=== PATIENT | male | born 1980 | race Caucasian/White ===

== ENCOUNTER 2018-06-15 19:21 | Inpatient (IN) | payer SELFPAY ==
[~2018-06-15] VITALS: Ht 190.5 cm; Wt 113.4 kg
[2018-06-15] MEDS ORDERED: IV NS 0.9% 1,000 ML BAG IV ONE (20:00)
[2018-06-15] MEDS ORDERED: ONDANSETRON HCL/PF - ER 4 MG/2 ML VIAL IV ONE (20:00)
[2018-06-15] MEDS ORDERED: MORPHINE SULFATE INJ 2 MG/ML DISP.SYRIN IV ONE (20:00)
[2018-06-15 20:02] LABS: APPEARANCE,URINE Clear (CLEAR); BILIRUBIN,URINE Negative (NEGATIVE); BLOOD, URINE Trace-lysed Ery/uL (NEGATIVE); COLOR,URINE Yellow (YELLOW); KETONES,URINE 15 (NEGATIVE); LEUKOCYTE ESTERASE ,URINE Negative (NEGATIVE); NITRITE, URINE Negative (NEGATIVE); PROTEIN,URINE 30 mg/dl (NEGATIVE); UGLUCOSE Negative (NEGATIVE); UROBILINOGEN,URINE 0.2 EU/dL (0.2)
[2018-06-15] MEDS ORDERED: ONDANSETRON HCL/PF 4 MG/2 ML VIAL ONE (20:07)
[2018-06-15] MEDS ORDERED: MORPHINE SULFATE INJ 4 MG/ML DISP.SYRIN ONE (20:08)
[2018-06-15 20:09] LABS: BASOPHILS % (AUTO) 0.2 % (0.0-2.0); EOSINOPHILS % (AUTO) 0.1 % (0.0-6.0); HEMATOCRIT 46 % (39-51); LYMPHOCYTES # (AUTO) 0.8 /CMM (0.8-4.8); LYMPHOCYTES % (AUTO) 8.7 % (20.0-44.0); MEAN CORPUSCULAR HGB CONC 35 g/dl (31.0-36.0); MEAN CORPUSCULAR VOLUME 87 fL (80-96); MONOCYTES # (AUTO) 0.7 /CMM (0.1-1.30); MONOCYTES % (AUTO) 7.2 % (2.0-12.0); NEUTROPHILS # (AUTO) 8.2 /CMM (1.8-8.9); NEUTROPHILS % (AUTO) 83.8 % (43.0-81.0); PLATELET COUNT (AUTO) 180 /CMM (150-450); RED BLOOD CELL COUNT(AUTO) 5.25 MIL/uL (4.5-6.0); WHITE BLOOD COUNT (AUTO) 9.7 K/uL (4.3-11.0)
[2018-06-15 20:17] LABS: CALCIUM, SERUM 9.4 mg/dL (8.5-10.1); CREATININE 1.3 mg/dL (0.6-1.3); POTASSIUM 3.9 mmol/L (3.5-5.1)
--- NOTE | 2018-06-15 20:21 | NUR ---
BIBSELF C/O GENERALIZED ABDOMINAL PAIN X1 DAY. CONSTANT AND SHARP.+N/V,-D,-DYSURIA,- HEMATURIA, -FEVER. LAST BM X1 DAY AGO. PT AAOX4, VSS. DENIES CP, SOB, DIZZINESS, WEAKNESS @ THIS TIME. PT SEEN & EVAL'D BY DR. OQUENDO. MEDICATED PER ORDERED, PT JOSE WELL. WILL CONT TO MONITOR.
[2018-06-15 20:23] LABS: BACTERIA,URINE Few /HPF (None Seen); MUCUS,URINE Moderate /LPF (None Seen); SQUAMOUS EPITHELIAL CELL,UR Few /HPF (None Seen); WBC,URINE 0-2 /HPF (0-3)
[2018-06-15 20:23] LABS: ALBUMIN 4.5 g/dL (3.4-5.0); BILIRUBIN,DIRECT 0.1 mg/dL (0.0-0.2); BILIRUBIN,TOTAL 0.7 mg/dL (0.2-1.0); TOTAL PROTEIN, SERUM 8.3 g/dL (6.4-8.2)
--- NOTE | 2018-06-15 21:15 | NUR ---
CALLED [facility] KATHE CONTRERAS
--- NOTE | 2018-06-15 21:19 | NUR ---
PT AAOX4, VSS. RLQ ABD PAIN 08/30 JOSE WELL. " IT'S BETTER ". DENIES CP, SOB, N/V, DIZZINESS, WEAKNESS @ THIS TIME. WILL CONT TO MONITOR.
--- NOTE | 2018-06-15 21:20 | NUR ---
PT STATES HE TAKES NO MEDICATIONS AT HOME
[2018-06-15] MEDS ORDERED: PIPERACILLIN /TAZOBACTAM 3.375 G in IV D5W 50 ML IV ONE (21:30)
[2018-06-15] MEDS ORDERED: ONDANSETRON HCL/PF 4 MG/2 ML VIAL IVP PRN (22:00)
[2018-06-15] MEDS ORDERED: ACETAMINOPHEN 325 MG TABLET PO PRN (22:00)
[2018-06-15] MEDS ORDERED: MAG HYDROX/AL HYDROX/SIMETH 30 ML UDC PO PRN (22:00)
[2018-06-15] MEDS ORDERED: HYDROCODONE/APAP 5/325MG 1 EACH TABLET PO PRN (22:00)
[2018-06-15] MEDS ORDERED: Z GUARD REMEDY 2 OZ OINT TP PRN (22:00)
[2018-06-15] MEDS ORDERED: MAGNESIUM HYDROXIDE 30 ML UDC PO PRN (22:00)
--- NOTE | 2018-06-15 22:01 | NUR ---
ADMIT TO ROOM 120-2 MED SURG DX ACUTE APPENDICITIS ACCEPTING BEN
[2018-06-15] MEDS ORDERED: PIPERACILLIN /TAZOBACTAM 3.375 G VIAL IV ONE (22:05)
--- NOTE | 2018-06-15 22:23 | NUR ---
REPORT GIVEN TO JULIAN STALLINGS FOR CONT OF CARE.
[2018-06-15 22:35] VITALS: BP 143/82
--- NOTE | 2018-06-15 22:35 | NUR ---
RN MS ADMISSION NOTES RECEIVED PATIENT FROM ER VIA GURNEY. PATIENT IS ALERT AND ORIENTED X4, VERBALLY RESPONSIVE, ABLE TO MAKE NEEDS KNOWN. BREATHING EVEN AND UNLABORED. NO SOB NOTED. TOLERATING ROOM AIR. WITH COMPLAINTS OF PAIN ON RIGHT LOWER ABDOMEN - WILL GIVE PRN PAIN MEDICATION. SKIN DRY AND WARM TO TOUCH. AFEBRILE. PATIENT IS AMBULATORY WITH STEADY GAIT. EXPLAINED THE PROCESS OF ADMISSION, INCLUDING SKIN ASSESSMENT. PER PATIENT, "ITS OK, I DONT HAVE ANY WOUNDS." PATIENT'S SKIN APPEARS TO HAVE NO ISSUES. ORIENTED TO THE USE OF UNIT AMENITIES. INFORMED OF NPO STATUS - VERBALIZED UNDERSTANDING. BELONGINGS ACCOUNTED FOR. ALL OTHER NEEDS ATTENDED TO. SAFETY MEASURES IN PLACE. CALL LIGHT WITHIN REACH. WILL CONTINUE TO MONITOR.
--- NOTE | 2018-06-15 23:30 | NUR ---
RN MS NOTES PATIENT REQUESTING FOR PAIN MEDICATION DUE TO ABDOMINAL PAIN. PATIENT HAS ORDERS FOR NORCO AND TYLENOL PO BUT PATIENT IS NPO. PAGED DR. BRITT TO CLARIFY ORDERS. PER EDITA DELGADO TO GIVE MORPHINE 2MG IV Q4H PRN. ALSO CLARIFIED REGARDING ZOSYN ORDER. PATIENT RECEIVED ZOSYN IN ER AT 2220, AND NEXT SCHEDULED DOSE IS 0000. PER EDITA DELGADO TO RESCHEDULE NEXT DOSE 6 HOURS AFTER LAST DOSE. ORDERS NOTED AND CARRIED OUT. WILL CONTINUE TO MONITOR.
[2018-06-16] MEDS: IV NS 0.9% 1,000 ML IV PRN ×2 (00:52→10:31)
[2018-06-16] MEDS: MORPHINE SULFATE INJ 2 MG/ML DISP.SYRIN IV PRN ×2 (01:02→22:54)
[2018-06-16 04:00] VITALS: BP 124/80
[2018-06-16] MEDS ORDERED: PIPERACILLIN /TAZOBACTAM 4.5 G in IV D5W 50 ML IV SCH ×5 (04:00→10:00)
[2018-06-16] MEDS ORDERED: PIPERACILLIN /TAZOBACTAM 2.25 G VIAL IV ONE (04:10)
--- NOTE | 2018-06-16 06:48 | NUR ---
RN MS CLOSING NOTES PATIENT RESTING IN BED. NO ACUTE CHANGES THROUGHOUT SHIFT. NO N/V. BREATHING EVEN AND UNLABORED. NO SOB NOTED. TOLERATING ROOM AIR. NO COMPLAINTS OF PAIN OR DISCOMFORT AT THE MOMENT. SKIN DRY AND WARM TO TOUCH. AFEBRILE. ALL OTHER NEEDS ATTENDED TO. SAFETY MEASURES IN PLACE. CALL LIGHT WITHIN REACH. WILL CONTINUE TO ENDORSE TO ONCOMING NURSE FOR COOPER.
[2018-06-16 07:24] LABS: BASOPHILS % (AUTO) 0.2 % (0.0-2.0); EOSINOPHILS % (AUTO) 0.3 % (0.0-6.0); HEMATOCRIT 41 % (39-51); HEMOGLOBIN 14.3 g/dL (13.5-17.5); LYMPHOCYTES # (AUTO) 1.3 /CMM (0.8-4.8); LYMPHOCYTES % (AUTO) 18.8 % (20.0-44.0); MEAN CORPUSCULAR HGB CONC 35 g/dl (31.0-36.0); MEAN CORPUSCULAR VOLUME 87 fL (80-96); MONOCYTES # (AUTO) 0.6 /CMM (0.1-1.30); MONOCYTES % (AUTO) 8.6 % (2.0-12.0); NEUTROPHILS # (AUTO) 5.1 /CMM (1.8-8.9); NEUTROPHILS % (AUTO) 72.1 % (43.0-81.0); PLATELET COUNT (AUTO) 129 /CMM (150-450); RED BLOOD CELL COUNT(AUTO) 4.73 MIL/uL (4.5-6.0)
[2018-06-16 07:39] LABS: ALBUMIN 3.7 g/dL (3.4-5.0); BILIRUBIN,TOTAL 1.3 mg/dL (0.2-1.0); CALCIUM, SERUM 8.7 mg/dL (8.5-10.1); CREATININE 1.3 mg/dL (0.6-1.3); MAGNESIUM 1.7 mg/dL (1.8-2.4); PHOSPHORUS 2.7 mg/dL (2.5-4.9); POTASSIUM 3.5 mmol/L (3.5-5.1)
[2018-06-16 08:00] VITALS: BP 116/68
[2018-06-16] MEDS ORDERED: PIPERACILLIN /TAZOBACTAM 3.375 G in IV D5W 100 ML IV SCH (09:00)
--- NOTE | 2018-06-16 10:08 | NUR ---
spoke with dr. lara ag he will see pt. today.
[2018-06-16] MEDS: Magnesium 1GM/D5W 100ML PREMIX 100 ML IV SCH ×2 (11:18→12:38)
[2018-06-16] MEDS ORDERED: PIPERACILLIN /TAZOBACTAM 3.375 G in IV D5W 50 ML IV SCH (12:00)
--- NOTE | 2018-06-16 18:51 | NUR ---
RN CLOSING NOTE PATIENT WILL BE ADMITTED TO SURGERY THIS EVENING PER ANDRE, STAT LABS DRAWN, PROCEDURES AND CONSENTS EXPLAINED SIGNED AND IN CHART. PATIENT HAS REFUSED PAIN MEDICATION THROUGH OUT THE DAY. IV ACCESS RIGHT AC. PATIENT REMAINS NPO PER MD ORDER, MAGNESIUM ADMINISTERED SUCCESFULLY TODAY, IV ATB INFUSED. AMBULATORY, ALERT AND ORIENTED. ENDORSE TO NIGHT NURSE, SURGERY IS SCHEDULED FOR 7PM 06/16
[2018-06-16] MEDS ORDERED: LIDOCAINE HCL/PF 1% 30 ML SDV ONE (19:02)
[2018-06-16] MEDS ORDERED: ANESTHESIA TRAY IN PYXIS 1 EA TRAY MC ONE (19:02)
[2018-06-16] MEDS ORDERED: BUPIVACAINE MPF 0.5% W/EPI INJ 30 ML VIAL ONE (19:02)
[2018-06-16] MEDS ORDERED: ROCURONIUM BROMIDE 50 MG/5 ML ONE (19:14)
[2018-06-16] MEDS ORDERED: MIDAZOLAM HCL 2 MG/2ML VIAL ONE (19:14)
[2018-06-16] MEDS ORDERED: HYDROMORPHONE INJ 2 MG/ML DISP.SYRIN ONE (19:14)
--- NOTE | 2018-06-16 20:00 | NUR ---
MS RN NOTES NOT IN THE ROOM,OUT TO SURGERY FOR LAPAROSCOPIC APPENDECTOMY POSSIBLE OPEN.
--- NOTE | 2018-06-16 20:30 | NUR ---
RN NOTES RECEIVED REPORT FROM JOHAN JORDAN,RECOVERY ROOM NURSE,S/P LAPAROSCOPIC APPENDECTOMY UNDER GENERAL ANESTHESIA
--- NOTE | 2018-06-16 20:40 | NUR ---
MS RN NOTES CAME BACK FROM SURGERY PER REBEKA,TRANSPORTED BY JOHAN JORDAN.WITH 3 ABDOMINAL INCISION GLUED.NO BLEEDING NOTED.AWAKE BUT KIND OF DROWSY FROM GENERAL ANESTHESIA.STARTED ON IVF NS AT 125ML/HR RATE VIA IV PUMP ON RIGHT AC,SITE PATENT.WILL CONTINUE TO MONITOR STATUS.ON CLEAR LIQUID DIET,GIVEN WATER PER PATIENT REQUEST.
[2018-06-16 20:45] VITALS: BP 128/75
--- NOTE | 2018-06-16 21:00 | NUR ---
MS RN NOTES STARTED ON INCENTIVE SPIROMETRY,INSTRUCTED HOW TO USE IT.
[2018-06-16] MEDS: CIPROFLOXACIN IV RTU 400 MG in PREMIX 1 EA IV SCH (21:22)
--- NOTE | 2018-06-16 21:22 | NUR ---
MS RN NOTES STARTED ON CIPRO IV ABX ORDERED.
--- NOTE | 2018-06-16 22:15 | NUR ---
MS RN NOTES ABLE TO WALK AROUND INSIDE THE ROOM.DENIES DIZZINESS.
[2018-06-16] MEDS: METRONIDAZOLE 500MG/ NS 100ML 500 MG in PREMIX 1 EA IV SCH (22:32)
--- NOTE | 2018-06-16 22:54 | NUR ---
MS RN NOTES PAIN MANAGEMENT C/O ABDOMINAL PAIN 8/10 ON PAIN SCALE POST AMBULATION,MORPHINE 2MG IV GIVEN AR ORDERED.
[2018-06-16 23:02] VITALS: BP 132/79
[2018-06-17 04:32] VITALS: BP 120/71
[2018-06-17] MEDS: METRONIDAZOLE 500MG/ NS 100ML 500 MG in PREMIX 1 EA IV SCH ×2 (04:46→12:11)
--- NOTE | 2018-06-17 06:19 | NUR ---
MS RN NOTES FAIRLY RESTED,PAIN TOLERABLE AT THE MOMENT,C/O FEELING DRY MOUTH,ICE CHIPS AT BEDSIDE.AMBULATORY.IN NO ACUTE DISTRESS.WILL ENDORSE TO DAY NURSE FOR COOPER.
--- NOTE | 2018-06-17 07:00 | NUR ---
MS RN OPENING NOTES RECEIVED PT LYING ON BED.ALERT/ORIENTED X4.ON ROOM AIR,TOLERATING WELL.NO SOB AND ACUTE DISTRESS NOTED.IV LINE IS ON RIGHT AC G20,SITE IS CLEAN,DRY AND INTACT.NO INFILTRATION NOTED.CAN AMBULATE WELL WITHOUT ASSISTANCE,NO PAIN AND DIZZY NOTED.SAFETY IS MAINTAINED AT ALL TIMES.BED IS IN ,LOW POSITION AND LOCKED,CALL LIGHT IS WITHIN REACH.WILL CONTINUE TO MONITOR THE PT CLOSELY.
[2018-06-17 08:00] VITALS: BP 129/74
[2018-06-17] MEDS: CIPROFLOXACIN IV RTU 400 MG in PREMIX 1 EA IV SCH (08:25)
[2018-06-17] MEDS: IV NS 0.9% 1,000 ML IV PRN (08:26)
[2018-06-17 08:44] LABS: CALCIUM, SERUM 8.8 mg/dL (8.5-10.1); CREATININE 1.1 mg/dL (0.6-1.3); MAGNESIUM 2.3 mg/dL (1.8-2.4); POTASSIUM 3.9 mmol/L (3.5-5.1)
[2018-06-17 08:45] LABS: HEMATOCRIT 41 % (39-51); HEMOGLOBIN 14.3 g/dL (13.5-17.5); LYMPHOCYTES # (AUTO) 0.8 /CMM (0.8-4.8); LYMPHOCYTES % (AUTO) 10.3 % (20.0-44.0); MEAN CORPUSCULAR HGB CONC 35 g/dl (31.0-36.0); MEAN CORPUSCULAR VOLUME 87 fL (80-96); MONOCYTES # (AUTO) 0.4 /CMM (0.1-1.30); MONOCYTES % (AUTO) 5.4 % (2.0-12.0); NEUTROPHILS # (AUTO) 6.5 /CMM (1.8-8.9); NEUTROPHILS % (AUTO) 84.3 % (43.0-81.0); PLATELET COUNT (AUTO) 153 /CMM (150-450); WHITE BLOOD COUNT (AUTO) 7.8 K/uL (4.3-11.0)
--- NOTE | 2018-06-17 11:20 | NUR ---
MS RN NOTES /GEORGINA PAYNE,PCP SEEN THE PT AND SAID WILL WAIT FOR JOHAN POWELL,SURGEON FOR DECIDING DISCHARGE,PT MADE AWARE.
--- NOTE | 2018-06-17 16:05 | NUR ---
MS INTERNAL COMBUSTION ENGINE ASSEMBLER NOTES PT IS DISCHARGED TO HOME,ALL THE DISCHARGE MEDICATIONS AND ANTIBIOTIC PRESCRIPTION HAS EXPLAINED TO THE PT,IV LINE IS REMOVED ON RIGHT AC ,NO BLEEDING NOTED.SECURITY ASSURANCE SPECIALIST HEIDI PRESLEY GAVE THE ANTIBIOTIC PRESCRIPTION.DR.ANDONIAN PAYNE VERBALLY ORDERED ITS OK TO DC HOME AFTER CLEARED BY MERY DA SILVAAND HE WILL DO THE DISCHARGE SUMMARY LATER HE IS IN THE MEETING RIGHT NOW.CHARGE NURSE MADE AWARE.SKIN ASSESSMENT HAS DONE,PICTURE HAS TAKEN.VERBALLY SAID ALL THE DISCHARGE PROCESS AND FOLLOW UP APPOINTMENT CLEARED TO THE PT.PT WALKED TON THE PARKING LOT AND FRIEND RAFAT WILL TOBACCO PREVENTION HEALTH EDUCATOR THE PT.
== END 2018-06-17 16:40 | disposition home or self-care (01) | DRG 339 ==
LOC: ER 19:25 → MEDSG1 22:04
PROVIDERS: ADMIT Internal Medicine; ATTEND Family Medicine
PROC: 0DTJ4ZZ Resection of Appendix, Percutaneous Endoscopic Approach (ICD-10-PCS; principal; 2018-06-16)
DX: K35.32 Acute appendicitis with perforation, localized peritonitis, and gangrene, without abscess (principal); N17.9 Acute kidney failure, unspecified; N43.3 Hydrocele, unspecified; E83.42 Hypomagnesemia; D69.6 Thrombocytopenia, unspecified; E66.9 Obesity, unspecified; Z68.31 Body mass index [BMI] 31.0-31.9, adult
CPT/HCPCS: 36415; 71045-TC; 80048-TC; 80053-TC; 80076-TC; 81000-TC; 83690-TC; 83735-TC; 84100-TC; 85025-TC; 85730-TC; 86850-TC; 87081-TC; 88304-TC; A4216; A6402; G0378; J0330; J0744; J1100; J1170; J1885; J2250; J2270; J2405; J2543; J2704; J2710; J3475; J3490; J7030; J7060